=== PATIENT | male | born 1995 | race African-American/Black ===

== ENCOUNTER 2016-09-08 00:12 | Emergency (ER) | payer SELFPAY ==
[~2016-09-08] VITALS: Ht 180.3 cm; Wt 86.2 kg
--- NOTE | 2016-09-08 02:00 | NUR ---
Patient exited the room asking about the wait. Patient was informed that ERMD had already been to his bedside but that he would not get off the phone. JAQUELINE notified.
[2016-09-08] MEDS: CEPHALEXIN MONOHYDRATE 500 MG CAPSULE PO ONE (02:57)
[2016-09-08] MEDS: HYDROCODONE/APAP 5-325MG TABLET PO ONE (02:57)
--- NOTE | 2016-09-08 02:59 | NUR ---
Patient discharged to home in stable conditon. Written and verbal after care instructions given. Patient verbalizes understanding of instructions.
[2016-09-08] MEDS ORDERED: CEPHALEXIN MONOHYDRATE 500 MG CAPSULE ONE (03:04)
[2016-09-08] MEDS ORDERED: HYDROCODONE/APAP 5-325MG TABLET ONE (03:04)
== END 2016-09-08 03:00 | disposition home or self-care (01) ==
LOC: ER 00:17
DX: K04.7 Periapical abscess without sinus (principal); F10.20 Alcohol dependence, uncomplicated; F17.200 Nicotine dependence, unspecified, uncomplicated
CPT/HCPCS: A4663